=== PATIENT | female | born 1985 | race Caucasian/White ===

== ENCOUNTER → 2016-11-17 | Outpatient (REF) | payer BC ==
[~2016-11-17] MED LIST: ACET50TA PO; IBUP600T26 PO
== END ==
LOC: M LAB REF 13:22
PROVIDERS: ATTEND Advanced Practice Midwife
DX: Z34.01 Encounter for supervision of normal first pregnancy, first trimester (principal)

== ENCOUNTER → 2017-03-16 | Outpatient (REF) | payer BC ==
[~2017-03-16] MED LIST changes: +BUSP15TA47 PO; +LEVO10VL PO; +ZANTTAB PO
== END ==
LOC: M LAB REF 12:33
PROVIDERS: ATTEND Advanced Practice Midwife
DX: O30.043 Twin pregnancy, dichorionic/diamniotic, third trimester (principal)

== ENCOUNTER 2017-03-27 00:26 | Inpatient (IN) | payer BC ==
[~2017-03-27] VITALS: Ht 157.5 cm; Wt 88.0 kg
[2017-03-27] VITALS (7 sets, daily range): BP systolic 106–129; BP diastolic 59–71
[~2017-03-27 00:26] MED LIST changes: -BUSP15TA47 PO; -LEVO10VL PO; -ZANTTAB PO
[2017-03-27] MEDS ORDERED: ZANTTAB PO (00:58)
[2017-03-27] MEDS ORDERED: LEVO10VL PO (00:58)
[2017-03-27] MEDS ORDERED: BUSP15TA47 PO (00:58)
[2017-03-27] MEDS ORDERED: BICITRA 30ML SOLN UDC As Ordered ONE (02:26)
[2017-03-27] MEDS ORDERED: LACTATED RINGER'S 1000 ML IV STA (02:27)
[2017-03-27] MEDS ORDERED: LR 1,000 ML IV SCH ×2 (02:27→05:30)
[2017-03-27] MEDS ORDERED: BICITRA 30ML SOLN UDC PO ONE (02:30)
[2017-03-27 03:16] LABS: MEAN CORPUSCULAR HEMOGLOBIN 26.4 pg (27.0-33.0); MEAN CORPUSCULAR HGB CONC 32.4 g/dl (32.0-36.5); MEAN CORPUSCULAR VOLUME 81.5 fl (80.0-96.0); WHITE BLOOD COUNT 13.3 K/mm3 (4.0-10.0)
[2017-03-27] MEDS ORDERED: NALOXONE INJ 0.4 MG/1 ML VIAL (J2310) IV PRN ×2 (04:10)
[2017-03-27] MEDS ORDERED: ONDANSETRON 4MG/2ML VIAL (J2405) IV PRN (04:10)
[2017-03-27] MEDS ORDERED: METOCLOPRAMIDE INJ 10MG/2ML VIAL (J2765) IV PRN (04:10)
[2017-03-27] MEDS ORDERED: NALBUPHINE HCL 10 MG/ML AMP (J2300) IV PRN ×2 (04:10→05:30)
[2017-03-27] MEDS ORDERED: ePHEDrine SULFATE 25 MG/5 ML(5MG/ML) SYRINGE As Ordered ONE (04:28)
[2017-03-27] MEDS ORDERED: PHENYLephrine HCL 500 MCG/5 ML (100MCG/ML) SYRINGE (J2370) As Ordered ONE ×2 (04:28→04:40)
[2017-03-27] MEDS ORDERED: OXYTOCIN INJ 10 UNITS/ML VIAL (J2590) As Ordered ONE (04:28)
[2017-03-27] MEDS ORDERED: dexameTHASONE 4 MG/ML 1ML VIAL (J1100) As Ordered ONE (04:28)
[2017-03-27] MEDS ORDERED: ONDANSETRON 4MG/2ML VIAL (J2405) As Ordered ONE (04:28)
[2017-03-27] MEDS ORDERED: KETOROLAC 60 MG/2 ML VIAL (J1885) As Ordered ONE (04:28)
[2017-03-27] MEDS ORDERED: MORPHINE PRES-FREE INJ 10 MG/10 ML VIAL (J2274) As Ordered ONE (04:28)
[2017-03-27] MEDS ORDERED: METOCLOPRAMIDE INJ 10MG/2ML VIAL (J2765) As Ordered ONE (04:39)
[2017-03-27 04:54] LABS: CORD GAS HCO3 A 21.9 MEQ/L; CORD GAS O2 SAT A 44.6 %; CORD GAS PCO2 A 51.8 mmHg; CORD GAS PH A 7.244 UNITS; CORD GAS PO2 A 22.6 mmHg; CORD GAS SBC A 18.3 MEQ/L; CORD GAS TCO2 A 23.5 MEQ/L
[2017-03-27 04:58] LABS: CORD GAS ABE V -5.8; CORD GAS HCO3 V 21.2 MEQ/L; CORD GAS O2 SAT V 53.1 %; CORD GAS PCO2 V 47.2 mmHg; CORD GAS PH V 7.271 UNITS; CORD GAS PO2 V 24.8 mmHg; CORD GAS SBC V 18.8 MEQ/L; CORD GAS TCO2 V 22.7 MEQ/L
[2017-03-27] MEDS ORDERED: RHOGAM 300 MCG (1500 IU) INJ (J2790) IM SCH (05:00)
[2017-03-27] MEDS ORDERED: METHYLERGONOVINE MALEATE 0.2 MG TAB PO PRN (05:00)
[2017-03-27] MEDS ORDERED: MEASLES,MUMPS,RUBELLA VACCINE INJ (MMR-II) (90707) SC SCH (05:00)
[2017-03-27 05:08] LABS: CORD GAS ABE V -3.7; CORD GAS HCO3 V 22.2 MEQ/L; CORD GAS O2 SAT V 35.4 %; CORD GAS PCO2 V 43.4 mmHg; CORD GAS PH V 7.327 UNITS; CORD GAS PO2 V 17.4 mmHg; CORD GAS SBC V 19.9 MEQ/L; CORD GAS TCO2 V 23.5 MEQ/L
[2017-03-27 05:09] LABS: CORD GAS ABE A -5.6; CORD GAS O2 SAT A 24.1 %; CORD GAS PH A 7.252 UNITS; CORD GAS PO2 A 14.9 mmHg; CORD GAS SBC A 18.3 MEQ/L; CORD GAS TCO2 A 23.5 MEQ/L
[2017-03-27] MEDS ORDERED: MEPERIDINE INJ 25 MG/ML VIAL (J2175) IV PRN (05:30)
[2017-03-27] MEDS ORDERED: fentaNYL 100 MCG/2 ML INJECTION (J3010) IV PRN (05:30)
[2017-03-27] MEDS ORDERED: MORPHINE 2 MG/ML 1ML SYRINGE IV PRN (05:30)
[2017-03-27] MEDS ORDERED: diphenhydrAMINE INJ 50MG/ML VIAL (J1200) IV PRN (05:30)
[2017-03-27] MEDS: LEVOTHYROXINE 25MCG TABLET (0.025MG) PO SCH (06:53)
[2017-03-27] MEDS ORDERED: diphenhydrAMINE INJ 50MG/ML VIAL (J1200) IV ONE (07:15)
[2017-03-27] MEDS ORDERED: ONDANSETRON 4MG/2ML VIAL (J2405) IV ONE (07:15)
[2017-03-27] MEDS: LR 1,000 ML IV SCH ×2 (07:24→12:57)
[2017-03-27] MEDS: PRENATAL VITAMIN TAB PO SCH (09:12)
[2017-03-27] MEDS: DOCUSATE SODIUM 100 MG CAP PO SCH ×2 (09:12→21:01)
[2017-03-27] MEDS: OMEPRAZOLE 20 MG CAP PO SCH (09:13)
--- NOTE | 2017-03-27 09:15 | RO ---
DATE OF PROCEDURE: 03/27/2017 Mirna Honeycutt is a 31-year-old female, 2, para 0-1-0-1 who is admitted with twin gestation at 33-4/7 weeks' gestation who presented with premature rupture of membranes. The patient was also found to have both fetus in breech position with the fetus A in footling breech. After counseling, a decision was made to proceed with a section. PREOPERATIVE DIAGNOSES: 1. Twin gestation at 33-4/7 weeks' gestation. 2. premature rupture of membranes. 3. Footling breech for twin A and raheel breech with twin B. 4. Contractions cannot rule out labor. POSTOPERATIVE DIAGNOSES: 1. Twin gestation at 33-4/7 weeks' gestation. 2. premature rupture of membranes. 3. Footling breech for twin A and raheel breech with twin B. 4. Contractions cannot rule out labor. PROCEDURE: Primary low transverse section, breech extraction times two. ANESTHESIA: Spinal. SURGEON: Regan Bustamante DO TRAVELING SALES REPRESENTATIVE: Soumya Beaulieu CNM COMPLICATIONS: None. ESTIMATED BLOOD LOSS: 500 mL. FINDINGS: Twin A in double footling breech position. scores 8 and 9. weight 4 pounds 2 ounces. Twin B in raheel breech position with intact membranes. scores 8 and 9. weight 3 pounds 11 ounces. Removed manually. Cord blood and cord gas sent. DESCRIPTION OF PROCEDURE: After obtaining informed consent, the patient was taken to the operating room where spinal anesthetic was found to be adequate. She was then draped and prepped usual fashion in the supine position. At this point, a Pfannenstiel incision was made. This was carried down to the fascia. The fascia was incised in midline fashion and carried through laterally. Superior aspect of the fascia was then grasped with the Kacey clamps, tented off, and dissected off the rectus muscles sharply. The inferior aspect was dissected off in a similar fashion. Rectus muscles in midline fashion. Peritoneum identified. Peritoneal cavity entered bluntly. Superior and inferior dissection of the peritoneum was then done with good visualization of the bladder. At this point, a Mobius skin retractor was placed. A low-transverse uterine incision was made. Twin A was delivered via breech extraction, double footling breech. The cord was clamped, cut, and was handed over to awaiting assembly line driver. The membrane on twin B was ruptured, raheel breech, and that twin B was also delivered via breech extraction. Cord doubly clamped and cut, and the was handed over to awaiting assembly line driver. Cord blood and cord gas were sent. Placenta removed manually. Uterus cleared of all clot and debris, and the uterine incision was then repaired in two separate layers of 0 Vicryl sutures. The pelvis copiously irrigated with normal saline and suctioned out. Attention turned to the peritoneum, which was closed in a running fashion using 2-0 Vicryl. The fascia closed in two separate segments of 0 Vicryl sutures. All superficial bleeders coagulated, and the skin was reapproximated in subcuticular fashion using 3-0 Vicryl on a Cj. Steri-Strips placed. The patient tolerated the procedure well. She was then transferred to recovery room in stable condition.
[2017-03-27] MEDS: IBUPROFEN 800 MG TAB PO SCH ×2 (13:21→21:02)
[2017-03-27] MEDS: ONDANSETRON 4MG/2ML VIAL (J2405) IV PRN ×2 (15:41→21:01)
--- NOTE | 2017-03-27 23:10 | HPE ---
DATE OF ADMISSION: 03/27/2017 HISTORY OF PRESENT ILLNESS: Mirna is a 31-year-old female para 0-0-0-1 , Twin gestation with an In Vitro Fertilization (IVF) estimated date of confinement (EDC) 05/11/2017, estimated gestational age (EGA) 33-4/7 weeks gestation. She presented to labor and delivery with complaint of leakage of fluid and contractions. Upon evaluation in labor and delivery she was fern positive. Her care was complicated with hypothyroidism which was well under control. The patient also has a history of gastroesophageal reflux. Her last ultrasound done on 03/07 shows both full twins in breech position, di-di with estimated weight in the 8th percentile for twin B and 13th percentile for twin A. Both amniotic fluid indices (AFIs) were within normal limits. labs blood type is A+, rubella immune, hepatitis negative, HIV negative , GC chlamydia negative, 1-hour sugar testing was 39. Her three hours was within normal limits. GBS was negative. PAST MEDICAL HISTORY: Significant for: 1. Hypothyroidism. 2. Anxiety. 3. Depression. 4. Gastroesophageal reflux. PAST SURGICAL HISTORY: The loop electrosurgical excision procedure (LEEP) procedure. SOCIAL HISTORY: The patient is . Denies any alcohol, drug or cigarette smoking. REVIEW OF SYSTEMS: Unremarkable. MEDICATIONS: - Synthroid 25 mcg - Zantac 150 mg - BuSpar 15 mg allergy: Sulfa antibiotic PHYSICAL EXAMINATION: GENERAL: Obese female in no acute distress, grossly within normal limits. ABDOMEN: Soft, nontender, nondistended. Gravid. EXTREMITIES: No clubbing, cyanosis, +1 lower extremity edema. VAGINAL EXAM: Sterile speculum exam mild pooling noted with some thick white discharge consistent with a possible yeast infection. Ferning was done, the Nitrazine was negative; however the ferning was positive for rupture. The cervix appeared to be closed and thick. Bedside ultrasound done. Both twins are in breech position with the twin A in footling breech position. Tracing reviewed, category one tracing for both twins. baseline, heart rate in the 140s good variability, good accelerations. Contractions every 4-5 minutes. ASSESSMENT: 1. Twin gestation di-di status post in vitro fertilization at approximately 33-4/7 weeks gestation. 2. premature rupture of membranes, cannot rule out labor. 3. Both twins in breech position with twin A in footling breech. PLAN: The patient will be admitted to labor and delivery. She is counseled extensively neonatology all spoke to Dr. Reyes. Plan is to hydrate the patient , obtain labs and proceed with section delivery. Both the patient and her partner were counseled extensively. The risks of prematurity discussed as well as the possibility of needing to be in the intensive care unit (NICU) for more than 2-3 weeks. The risks and benefit of delivery were discussed. Given that the patient is already ruptured, will await the initial blood work. At this point, the benefits of delivery might weigh the possibility of waiting for steroids. JAIMED
[2017-03-28 02:17] VITALS: BP 98/55
[2017-03-28] MEDS: LEVOTHYROXINE 25MCG TABLET (0.025MG) PO SCH (06:03)
[2017-03-28] MEDS: IBUPROFEN 800 MG TAB PO SCH ×3 (06:04→21:09)
[2017-03-28 06:35] VITALS: BP 113/65
[2017-03-28 07:07] LABS: MEAN CORPUSCULAR HEMOGLOBIN 27.1 pg (27.0-33.0); MEAN CORPUSCULAR HGB CONC 32.6 g/dl (32.0-36.5); MEAN CORPUSCULAR VOLUME 83.2 fl (80.0-96.0); WHITE BLOOD COUNT 11.3 K/mm3 (4.0-10.0)
[2017-03-28] MEDS: NORCO, ANEXSIA 5/325MG TABLET (HYDROcodone/ACETAMINOPHEN) PO PRN ×2 (07:38→15:11)
[2017-03-28] MEDS: OMEPRAZOLE 20 MG CAP PO SCH (09:00)
[2017-03-28] MEDS: PRENATAL VITAMIN TAB PO SCH (10:03)
[2017-03-28] MEDS: DOCUSATE SODIUM 100 MG CAP PO SCH ×2 (10:03→21:07)
[2017-03-28] MEDS ORDERED: FLUCONAZOLE 50MG TABLET PO ONE (12:00)
[2017-03-28 14:00] VITALS: BP 113/62
[2017-03-28 18:04] VITALS: BP 135/86
[2017-03-28 22:27] VITALS: BP 120/76
[2017-03-29] MEDS: IBUPROFEN 800 MG TAB PO SCH ×3 (05:16→19:47)
[2017-03-29] MEDS: NORCO, ANEXSIA 5/325MG TABLET (HYDROcodone/ACETAMINOPHEN) PO PRN ×4 (05:21→20:50)
[2017-03-29] MEDS: LEVOTHYROXINE 25MCG TABLET (0.025MG) PO SCH (05:30)
[2017-03-29 06:15] VITALS: BP 116/71
[2017-03-29] MEDS: DOCUSATE SODIUM 100 MG CAP PO SCH ×2 (08:59→19:48)
[2017-03-29] MEDS: OMEPRAZOLE 20 MG CAP PO SCH (08:59)
[2017-03-29] MEDS: PRENATAL VITAMIN TAB PO SCH (08:59)
[2017-03-29] MEDS: MOM 30ML SUSPENSION UDC PO PRN ×2 (17:25→20:50)
[2017-03-29 18:00] VITALS: BP 113/61
[2017-03-29 20:00] VITALS: BP 113/61
[2017-03-30] MEDS: NORCO, ANEXSIA 5/325MG TABLET (HYDROcodone/ACETAMINOPHEN) PO PRN ×3 (00:37→10:11)
[2017-03-30] MEDS: LEVOTHYROXINE 25MCG TABLET (0.025MG) PO SCH (05:44)
[2017-03-30] MEDS: IBUPROFEN 800 MG TAB PO SCH (05:44)
[2017-03-30 06:20] VITALS: BP 113/72
[2017-03-30] MEDS: PRENATAL VITAMIN TAB PO SCH (08:31)
[2017-03-30] MEDS: DOCUSATE SODIUM 100 MG CAP PO SCH (08:31)
[2017-03-30] MEDS: OMEPRAZOLE 20 MG CAP PO SCH (08:31)
[2017-03-30] MEDS ORDERED: IBUP-1114 PO (08:40)
[2017-03-30] MEDS ORDERED: PRENTAB9 PO (08:40)
== END 2017-03-30 10:30 | disposition home or self-care (01) | DRG 540 ==
LOC: M LDO 00:26 → M LDI 02:26 → M OBS 05:07
PROVIDERS: ADMIT Obstetrics & Gynecology; ATTEND Obstetrics & Gynecology
PROC: 10D00Z1 Extraction of Products of Conception, Low, Open Approach (ICD-10-PCS; principal; 2017-03-27 04:01)
DX: O42.013 Preterm premature rupture of membranes, onset of labor within 24 hours of rupture, third trimester (principal); O30.043 Twin pregnancy, dichorionic/diamniotic, third trimester; Z37.2 Twins, both liveborn; Z3A.33 33 weeks gestation of pregnancy; O99.284 Endocrine, nutritional and metabolic diseases complicating childbirth; E03.9 Hypothyroidism, unspecified; O99.62 Diseases of the digestive system complicating childbirth; K21.9 Gastro-esophageal reflux disease without esophagitis; O32.8XX1 Maternal care for other malpresentation of fetus, fetus 1; O32.1XX2 Maternal care for breech presentation, fetus 2; O99.344 Other mental disorders complicating childbirth; F41.9 Anxiety disorder, unspecified; F32.9 Major depressive disorder, single episode, unspecified; Z79.899 Other long term (current) drug therapy

== ENCOUNTER → 2020-05-27 | Outpatient (REF) | payer BC ==
[~2020-05-27] MED LIST changes: -ACET50TA PO; +BUSP15TA47 PO; +IBUP-1114 PO; +LEVO10VL PO; +MAPA500T17 PO; +PRENTAB9 PO; +ZANT150T40 PO
== END ==
LOC: M LAB REF 10:22
PROVIDERS: ATTEND Obstetrics & Gynecology
DX: Z32.01 Encounter for pregnancy test, result positive (principal)

== ENCOUNTER → 2021-01-05 | Outpatient (REF) | payer BC | LOC: M LAB REF 16:18 | PROVIDERS: ATTEND Advanced Practice Midwife | DX: Z34.03 Encounter for supervision of normal first pregnancy, third trimester (principal); Z36.85 Encounter for antenatal screening for Streptococcus B ==